=== PATIENT | male | born 1940 | race Caucasian/White ===

== ENCOUNTER 2020-12-14 07:10 | Day surgery (SDC) | payer OTHER ==
--- NOTE | 2020-12-10 11:22 | RAD REPORT ---
EXAM DESCRIPTION: RAD - Chest Pa And Lat (2 Views) - 12/10/2020 11:18 am CLINICAL HISTORY: pre-op procedure Chest pain. COMPARISON: CHEST SINGLE VIEW dated 07/16/2012; CHEST SINGLE VIEW dated 07/10/2012 FINDINGS: The lungs are clear. The heart is normal in size. No displaced fractures. Bilateral should er arthroplasties. IMPRESSION: No acute or concerning finding suspected.
[2020-12-10 12:24] LABS: Potassium 4.6 mmol/L (3.5-5.1)
[2020-12-10 12:27] LABS: Basophils % 0.7 % (0-1.3); Lymphocytes % 21.3 % (15.3-44.8); MPV 7.6 fL (7.6-11.3); RBC Red Blood Cell Count 4.25 M/uL (4.33-5.43)
[2020-12-10 12:30] LABS: Protime INR 1.03
[~2020-12-14 07:10] MED LIST: ATROPINE SULF 1 MG/10 ML SYR IV ONE; FENTANYL CITR 100 MCG/2 ML ONE; HEPA 1000U/500MLS 1,000 UNIT/500 ML BAG IV ONE; LIDOCAINE 1% 20 ML MDV ONE; MIDAZOLAM HCL 2 MG/2 ML INJ ONE; NA CHLORIDE 0.9% 500 ML ONE
[2020-12-14 08:14] VITALS: TEMP 97.2
[2020-12-14 08:42] VITALS: O2SAT 100
[2020-12-14 09:46] VITALS: BP 126/69
--- NOTE | 2020-12-14 15:53 | OP ---
Surgeon: Adonis Andrews MD Skilled Helper: Mr. Doni Johnson. Procedure: Admitted today 12/14/2020 to the drop crew laborer as an outpatient for bilateral selective caroti d angiogram. Indication: Abnormal carotid Doppler and CVD. Procedure In Detail: Mr. Coffey is 80, brought into the drop crew laborer today as an outpatient, prepped and draped in the routine sterile fashion. Given Versed for sedation and fentanyl. A 6-[place] sheath i ntroduced in the right common femoral artery successfully using Seldinger technique and 10 mL of Xylo evelia. Edgard catheter JR4 was used to select the left common carotid artery first and then the rig ht common carotid artery separately. We found an 80% stenosis in the right internal carotid artery. The left internal carotid had a 30% stenosis. Both of the common carotid and external carotid were normal. No complications. Blood loss was 5 mL. Anesthesia: Total conscious sedation 45 minutes. Postoperative Diagnosis: Severe right internal carotid artery stenosis. Plan: For a right carotid endarterectomy. Angiography in the common femoral artery area was normal. Angio-Seal was used to close the case. The patient will remain in the hospital for 2 hours. He wi ll go home after that. He will have a CD of his carotid angiogram with him. I will make arrangements for him to have an endarterectomy on the right side in the near future in [place]. RACHEL/PIA Voice ID: [id number] Report ID: [id number]
== END 2020-12-14 10:00 | disposition home or self-care (01) ==
LOC: CCL 07:10
DX: I65.23 Occlusion and stenosis of bilateral carotid arteries (principal); I25.10 Atherosclerotic heart disease of native coronary artery without angina pectoris; I10 Essential (primary) hypertension; E78.2 Mixed hyperlipidemia; Z95.5 Presence of coronary angioplasty implant and graft; Z20.822 Contact with and (suspected) exposure to COVID-19; Z82.49 Family history of ischemic heart disease and other diseases of the circulatory system
CPT/HCPCS: 85025; 80048; 36415; 85610; 85730; 71046; 36222; U0003; C1893; C1760; J2250; J3010; J7040; J1644

== ENCOUNTER 2022-09-08 07:20 | Day surgery (SDC) | payer OTHER ==
[2022-09-08] MEDS ORDERED: Ringers Lactate 1,000 ML IV ONE (08:19)
[2022-09-08] MEDS ORDERED: CEFAZOLIN SODIUM 2 GM/VIAL ONE (08:20)
[2022-09-08 08:58] LABS: Potassium 3.9 mmol/L (3.5-5.1)
[2022-09-08] MEDS ORDERED: propofoL 200 MG/20 ML VIAL IV ONE (09:33)
[2022-09-08] MEDS ORDERED: BUPIVACAINE 0.5% PF 10 ML VIAL ONE (09:47)
[2022-09-08] MEDS ORDERED: LIDOCAINE 2% MPF 5 ML VIAL ONE (10:08)
[2022-09-08] MEDS ORDERED: ONDANSETRON 4 MG/2 ML VIAL ONE (10:09)
--- NOTE | 2022-09-08 10:38 | P.OP ---
Preoperative diagnosis: RIGHT lower Extremity Infected Hematoma Postoperative diagnosis: RIGHT lower Extremity Infected Hematoma Primary procedure: Excisional Debridement of RIGHT lower Extremity Infected Hematoma Anesthesia: MAC + local Estimated blood loss: <5cc Specimen: Cultures and Debridment tissues Findings: necrotic tissue ~ 5cm x 3cm wound to fascia over muscle Complications: None Transferred to: Recovery Room Condition: Good
[2022-09-08 10:57] VITALS: O2SAT 100
[2022-09-08 12:56] VITALS: BP 176/79; TEMP 98.2
--- NOTE | 2022-09-08 20:33 | OP ---
Date of Procedure: 09/08/2022 Surgeon: Akhil Bernal MD, Preoperative Diagnosis: Right lower extremity infected hematoma. Postoperative Diagnosis: Right lower extremity infected hematoma. Procedure Performed: Excisional debridement of right lower extremity infected hematoma. Anesthesia: MAC plus local with 0.25% Marcaine. Estimated Blood Loss: Less than 5 cc. Specimen: Culture sent for aerobic and anaerobic speciation as well as debridement tissue. Findings: Necrotic tissue extending from approximately 5 cm x 3 cm down to the fascia overlying the muscle. Complications: None. The patient was transferred to recovery room in good condition. Procedure In Detail: After informed consent was obtained, the patient was brought to the operating r oom and prepped and draped in the usual sterile fashion. After adequate anesthesia was achieved, I a nesthetized the area circumferentially around an area of large fluctuance down through subcutaneous t issues using 0.25% Marcaine. I then made an elliptical incision down through an area of obvious disc oloration and fluctuance to expose an obvious hematoma with necrotic tissue. I cultured this area fo r both aerobic and anaerobic speciation. I took the ellipse of skin approximately 5 cm x 3 cm and re moved all necrotic tissue using a combination of sharp dissection as well as curette. After the cure tte had removed the majority of the tissue, I irrigated the area copiously and achieved hemostasis wi th electrocautery and inspected the area of hemostasis. No additional hemostatic measures required. I then packed the wound with 2 inch Kerlix soaked damp to dry with Vashe solution and a sterile dres sing placed over top as well as an Ravi bandage. The patient tolerated the procedure without evidence of any complication and transferred to PACU in good condition. All counts were correct at the end o f the case. TK/MODL Voice ID: [id number] Report ID: [id number]
--- NOTE | 2022-09-11 12:47 | EKG ---
Test Date: 2022-09-08 Test Time: 08:03:47 Dynamic Balancer: MEASUREMENT RESULTS: Intervals: Rate: 70 HI: 176 QRSD: 86 QT: 432 QTc: 466 [place]: P: 16 HI: 176 QRS: -16 T: 35 INTERPRETIVE STATEMENTS: Sinus rhythm with occasional premature ventricular complexes Minimal voltage criteria for LVH, may be normal variant Anteroseptal infarct, age undetermined Abnormal ECG Compared to ECG 07/16/2012 08:19:57 Ventricular premature complex(es) now present Left ventricular hypertrophy now present Myocardial infarct finding now present Sinus arrhythmia no longer present Electronically Signed On 09-11-22 12:38:48 ASSISTANT BRANCH MANAGER by Willian Ayon
== END 2022-09-08 12:00 | disposition home or self-care (01) ==
LOC: OR 07:20
PROVIDERS: ATTEND Surgery
PROC: 0JBN0ZZ Excision of Right Lower Leg Subcutaneous Tissue and Fascia, Open Approach (ICD-10-PCS; principal; 2022-09-08 10:20)
DX: S80.11XA Contusion of right lower leg, initial encounter (principal); L08.9 Local infection of the skin and subcutaneous tissue, unspecified; X58.XXXA Exposure to other specified factors, initial encounter; I96 Gangrene, not elsewhere classified
CPT/HCPCS: 93005; 87070; 80048; 36415; 87205 ×2; 88304; 87075; 11042; J2704; J2001; J7120; J2405

== ENCOUNTER 2025-02-25 06:35 | Day surgery (SDC) | payer OTHER ==
[2025-02-24 10:11] LABS: Absolute Lymphocytes (CBC) 0.4 K/uL (0.7-4.9); Hematocrit 30.3 % (39.6-49.0); Hemoglobin 10.4 g/dL (13.6-17.9); MCH 31.7 pg (27.0-35.0); MCHC 34.3 g/dL (32.0-36.0); MCV 92.5 fL (80-100); MPV 7.3 fL (7.6-11.3); Nucleated RBC Absolute Count 0.0 (0-0); Nucleated Red Blood Cells % 0.0 % (0-0); RBC Red Blood Cell Count 3.27 M/uL (4.33-5.43); White Blood Count 5.10 thou/uL (4.3-10.9)
[2025-02-24 10:22] LABS: PT Prothrombin Time 13.3 SECONDS (10-13.0); PTT, Activated Partial Thromb 28.9 SECONDS (27.2-37.4); Protime INR 1.18
[2025-02-24 10:27] LABS: Anion Gap 6.9 mEq/L (5.0-15.0); BUN Blood Urea Nitrogen 35.0 mg/dL (7-18); Glucose Level 107.0 mg/dL (74-106); Potassium 3.9 mEq/L (3.5-5.1)
[2025-02-25] MEDS ORDERED: NA CHLORIDE 0.9% 0 ML ONE (06:45)
[2025-02-25] MEDS ORDERED: NITROGLYCERIN/D5W 0 MG/0 ML BTL IV ONE (06:49)
[2025-02-25] MEDS ORDERED: HEPA IV ONE (06:49)
[2025-02-25] MEDS ORDERED: ASPIRIN 325 MG TAB ONE (06:50)
[2025-02-25] MEDS ORDERED: HEPARIN 10,000 UNIT/10 ML VIAL IV ONE (06:50)
[2025-02-25] MEDS ORDERED: CLOPIDOGREL 75 MG TABLET ONE (06:50)
[2025-02-25] MEDS ORDERED: ATROPINE SULF 1 MG/10 ML SYR IV ONE (06:50)
[2025-02-25] MEDS ORDERED: VERAPAMIL HCL 10 MG/4 ML VIAL IV ONE (06:50)
[2025-02-25] MEDS ORDERED: HEPARIN 5000 UNIT/ML 1 ML VIAL ONE (06:50)
[2025-02-25] MEDS ORDERED: LIDOCAINE 1% 20 ML MDV ONE (06:50)
[2025-02-25] MEDS ORDERED: TICAGRELOR 90 MG TABLET PO ONE (06:50)
[2025-02-25 07:06] VITALS: BP 115/66; O2SAT 95
== END 2025-02-25 07:45 | disposition home or self-care (01) ==
LOC: CCL 06:35
PROVIDERS: ATTEND Internal Medicine
DX: R94.39 Abnormal result of other cardiovascular function study (principal); I25.10 Atherosclerotic heart disease of native coronary artery without angina pectoris; Z53.8 Procedure and treatment not carried out for other reasons
CPT/HCPCS: 93005; 85025; 80048; 36415; 85610; 85730; J1644; J0461; J2003; J7040

== ENCOUNTER 2025-02-26 10:23 | Emergency (ER) | payer OTHER ==
[2025-02-26 11:05] LABS: Absolute Lymphocytes (CBC) 0.6 K/uL (0.7-4.9); Hematocrit 29.2 % (39.6-49.0); Hemoglobin 10.0 g/dL (13.6-17.9); MCH 31.7 pg (27.0-35.0); MCHC 34.2 g/dL (32.0-36.0); MCV 92.6 fL (80-100); MPV 7.3 fL (7.6-11.3); Nucleated RBC Absolute Count 0.0 (0-0); Nucleated Red Blood Cells % 0.0 % (0-0); RBC Red Blood Cell Count 3.16 M/uL (4.33-5.43); White Blood Count 4.90 thou/uL (4.3-10.9)
[2025-02-26 11:25] LABS: PT Prothrombin Time 13.4 SECONDS (10-13.0); Protime INR 1.19
[2025-02-26 11:26] LABS: ALT/SGPT 18.0 U/L (16-61); AST/SGOT 25.0 U/L (15-37); Albumin 3.0 g/dL (3.4-5.0); Albumin/Globulin Ratio 0.9 (1.1-1.8); Alkaline Phosphatase 72.0 U/L (45-117); Anion Gap 9.2 mEq/L (5.0-15.0); BUN Blood Urea Nitrogen 28.0 mg/dL (7-18); Bilirubin Indirect, Calculated 0.3 mg/dL (0.2-0.8); Globulin 3.3 g/dL (2.3-3.5); Glucose Level 130.0 mg/dL (74-106); Magnesium 1.5 mg/dL (1.6-2.4); NT PRO-BNP 347.0 pg/mL (<450); Potassium 3.2 mEq/L (3.5-5.1); Troponin High Sensitivity 11.1 pg/mL (<58.9)
--- NOTE | 2025-02-26 11:26 | RAD REPORT ---
EXAMINATION: ONE VIEW CHEST XR CLINICAL INDICATION: hypotension TECHNIQUE: Frontal chest projection is submitted. Examination is limited by patient positioning and t echnique. COMPARISON: 01-22-25 FINDINGS: The lungs are well inflated and clear. The heart is normal in size. No displaced fractures identified . Bilateral shoulder arthroplasty. IMPRESSION: No acute intrathoracic abnormalities.
[2025-02-26] MEDS ORDERED: NA CHLORIDE 0.9% 1,000 ML ONE (11:34)
[2025-02-26] MEDS ORDERED: NA CHLORIDE 0.9% 500 ML ONE (12:46)
[2025-02-26] MEDS ORDERED: POTASSIUM 25 MEQ EFFERV TAB ONE (12:51)
--- NOTE | 2025-02-26 13:57 | EDPHYS ---
Physician Documentation [facility] Name: Terell Coffey Age: 84 yrs Sex: Male : 1940 Arrival Date: 02/26/2025 Time: 10:23 Bed 4 Private MD: ED Physician Gabriela Saenz HPI: 02/26 11:06 This 84 yrs old Male presents to ER via Wheelchair with complaints of low blood sp3 pressure. 11:06 84-year-old male with history of hypertension, prostate cancer sent from Dr. Christensen sp3 office for hypotension and generalized weakness. Patient saw PCP who took patient off some blood pressure medications. He is currently receiving oral tablet chemotherapy for his prostate cancer. Patient's symptoms of low blood pressure been going on for the last 3 weeks episodically with intermittent normal blood pressures. Patient denies any symptoms other than the generalized weakness which only started today. He denies any current or past headache, neck pain, chest pain, shortness of breath, abdominal pain, vomit, diarrhea, extremity pain, syncope, near syncope, bleeding, melena, known sick contacts, travel history, fever, upper respiratory infection, or any other signs or symptoms on ROS at this time.. Historical: - Allergies: 10:27 No Known Allergies; aa5 - PMHx: 10:27 Hypertensive disorder; Prostate Cancer; aa5 - Immunization history:: Adult Immunizations unknown. - Infectious Disease History:: Denies. - Social history:: Smoking status: Patient denies any tobacco usage or history of. ROS: 11:11 Eyes: Negative for injury, pain, redness, and discharge, ENT: Negative for injury, sp3 pain, and discharge, Neck: Negative for injury, pain, and swelling, Cardiovascular: Negative for chest pain, palpitations, and edema, Respiratory: Negative for shortness of breath, cough, wheezing, and pleuritic chest pain, Abdomen/GI: Negative for abdominal pain, nausea, vomiting, diarrhea, and constipation, Back: Negative for injury and pain, MS/Extremity: Negative for injury and deformity, Skin: Negative for injury, rash, and discoloration, Psych: Negative for depression, anxiety, suicide ideation, homicidal ideation, and hallucinations, Allergy/Immunology: Negative for hives, rash, and allergies, Endocrine: Negative for neck swelling, polydipsia, polyuria, polyphagia, and marked weight changes, Hematologic/Lymphatic: Negative for swollen nodes, abnormal bleeding, and unusual bruising, 11:11 All other systems are negative, Exam: 11:13 Constitutional: This is a well developed, well nourished patient who is awake, alert, sp3 and in no acute distress. Head/Face: Normocephalic, atraumatic. Eyes: Pupils equal round and reactive to light, extra-ocular motions intact. Lids and lashes normal. Conjunctiva and sclera are non-icteric and not injected. Cornea within normal limits. Periorbital areas with no swelling, redness, or edema. Neck: Trachea midline, no thyromegaly or masses palpated, and no cervical lymphadenopathy. Supple, full range of motion without nuchal rigidity, or vertebral point tenderness. No Meningismus. Chest/axilla: Normal chest wall appearance and motion. Nontender with no deformity. No lesions are appreciated. Cardiovascular: Regular rate and rhythm with a normal S1 and S2. No gallops, murmurs, or rubs. Normal PMI, no JVD. No pulse deficits. Respiratory: Lungs have equal breath sounds bilaterally, clear to auscultation and percussion. No rales, rhonchi or wheezes noted. No increased work of breathing, no retractions or nasal flaring. Abdomen/GI: Soft, non-tender, with normal bowel sounds. No distension or tympany. No guarding or rebound. No evidence of tenderness throughout. Back: No spinal tenderness. No costovertebral tenderness. Full range of motion. Skin: Warm, dry with normal turgor. Normal color with no rashes, no lesions, and no evidence of cellulitis. MS/ Extremity: Pulses equal, no cyanosis. Neurovascular intact. Full, normal range of motion. Neuro: Awake and alert, GCS 15, oriented to person, place, time, and situation. Cranial nerves II-XII grossly intact. Motor strength 5/5 in all extremities. Sensory grossly intact. Cerebellar exam normal. Normal gait. Psych: Awake, alert, with orientation to person, place and time. Behavior, mood, and affect are within normal limits. 11:13 Cardiovascular: Blood pressure noted 75/47. Pulse normal., 11:15 ECG was reviewed by the Attending Physician. EKG demonstrates normal sinus rhythm at 67 sp3 bpm with normal intervals, normal QRS, normal axis and nonspecific diffuse ST/T changes without evidence of acute ischemia. Vital Signs: 10:27 BP 99 / 54; Pulse 70; Resp 18 S; Temp 97.8(TE); Pulse Ox 99% on R/A; Weight 65.77 kg aa5 (R); Height 5 ft. 6 in. (R); 10:56 BP 91 / 51 Supine; Pulse 66 LA; ar8 10:58 BP 90 / 51 LA Sitting; Pulse 70; ar8 11:00 BP 75 / 47 LA Standing; Pulse 72; ar8 11:37 BP 87 / 56; Pulse 59; Resp 18; Pulse Ox 100% on R/A; ph 12:01 BP 100 / 51; Pulse 61; Resp 18; Pulse Ox 98% on R/A; ph 14:01 BP 111 / 61 LA Supine; Pulse 66; Resp 16; Pulse Ox 97% on R/A; ar8 14:03 BP 126 / 91 LA Sitting; Pulse 71; Resp 17; ar8 14:05 BP 119 / 65 LA Standing; Pulse 74; ar8 10:27 Body Mass Index 23.40 (65.77 kg, 167.64 cm) aa5 MDM: 10:35 Medical Screening Exam initiated sp3 11:13 Data reviewed: vital signs, nurses notes, lab test result(s), EKG, radiologic studies. sp3 ED course: 84-year-old male with PMH above including prostate cancer now presents with hypotension with only symptom generalized weakness which only started today. Hypotension has been off and on for the last 3 weeks. Differential diagnosis includes dehydration, electrolyte abnormality, dysregulation of autonomic system, and to a lesser degree infection or other process. Workup will include general labs including lactate, chest x-ray, EKG and general supportive care. UA also ordered. Disposition probable admission with any indicated medications as needed.. 12:08 ED course: Patient mildly dehydrated with creatinine 1.6. Lactate of 2.0. Blood sp3 pressure already improved with 500 mL normal saline. A total of 1500 mL will be given coupled with potassium replenishment. Will reassess vital signs and blood pressure including orthostatics once complete to evaluate discharge versus 23-hour observation. Patient is feeling better and states that he would rather go home. He has good follow-up in the oncology office.. 13:56 ED course: Patient feeling much better. We will safely discharge him home at this time. sp3 I have offered admission however patient would like to go home.. 02/26 10:38 Order name: Basic Metabolic Panel; Complete Time: 11:41 sp3 02/26 10:38 Order name: CBC with Diff; Complete Time: 11:41 sp3 02/26 10:38 Order name: LFT's; Complete Time: 11:41 sp3 02/26 10:38 Order name: Magnesium; Complete Time: 11: sp3 02/26 10:38 Order name: NT PRO-BNP; Complete Time: 11: sp3 02/26 10:38 Order name: PT-INR; Complete Time: 11: sp3 02/26 10:38 Order name: Troponin HS; Complete Time: : sp3 02/26 10:38 Order name: Lactate w/ 2H reflex if indic.; Complete Time: 11:41 sp3 02/26 10:38 Order name: XRAY Chest (1 view); Complete Time: 11: 3 02/26 10:38 Order name: Cardiac monitoring; Complete Time: 10:40 sp3 02/26 10:38 Order name: EKG - Nurse/Tech; Complete Time: 11: sp3 02/26 10:38 Order name: IV Saline Lock; Complete Time: 10:40 sp3 02/26 10:38 Order name: Labs collected and sent; Complete Time: 10:40 sp3 02/26 10:38 Order name: O2 Per Protocol; Complete Time: 10:40 sp3 02/26 10:38 Order name: O2 Sat Monitoring; Complete Time: 10:40 sp3 02/26 10:38 Order name: Orthostatics; Complete Time: 11: sp3 02/26 12:10 Order name: Orthostatics: Please repeat after 1500 mL is infused.; Complete Time: 14:18 sp3 Administered Medications: 11:37 Drug: NS 0.9% IV 1000 ml IV at 1 bolus Per protocol; to be given as a bolus over 60 ph minutes Route: IV; Rate: 1 bolus; Site: right antecubital; 13:05 Follow up: IV Status: Completed infusion; IV Intake: 1000ml ar8 13:06 Follow up: Response: No adverse reaction ar8 12:55 Not Given (order changedd): potassium chlorideliquid 40 meq PO once ar8 13:05 Drug: NS 0.9% IV 500 ml IV at bolus once; to be given as a bolus over 30 minutes Route: ar8 IV; Rate: bolus; Site: right antecubital; 14:00 Follow up: Response: No adverse reaction; Marked relief of symptoms; IV Status: ar8 Completed infusion; IV Intake: 500ml 13:05 Drug: Potassium PO Effervescent Tablet 50 mEq PO once; dissolve in 4 ounces of water or ar8 juice Route: PO; 14:00 Follow up: Response: No adverse reaction ar8 Disposition Summary: 02/26/25 13:57 Discharge Ordered Notes: Location: Home sp3 Condition: Stable sp3 Diagnosis - Dehydration, hypokalemia sp3 Followup: sp3 - With: Private Physician - When: Upon discharge from the Emergency Department - Reason: Continuance of care Discharge Instructions: - Discharge Summary Sheet sp3 - Dehydration, Adult sp3 - Hypokalemia sp3 Forms: - Medication Reconciliation Form sp3 - Antibiotic Education sp3 - Prescription Opioid Use sp3 - Patient Portal Instructions sp3 - Leadership Thank You Letter sp3 Signatures: Dispatcher [employer] EDMS Carly Quinn RN RN aa5 Milla Swann RN RN ph Patel, Setul, MD MD sp3 Oren Miner RN RN ar8 Corrections: (The following items were deleted from the chart) 10:39 10:39 BASIC METABOLIC PANEL+C.LAB.BRZ ordered. EDMS EDMS 10:39 10:39 CBC+H.LAB.BRZ ordered. EDMS EDMS 10:39 10:39 HEPATIC FUNCTION+C.LAB.BRZ ordered. EDMS EDMS 10:39 10:39 MAGNESIUM+C.LAB.BRZ ordered. EDMS EDMS 10:39 10:39 PROBNP+C.LAB.BRZ ordered. EDMS EDMS 10:39 10:39 PROTIME (+INR)+COAG.LAB.BRZ ordered. EDMS EDMS 10:39 10:39 Troponin High Sensitivity+C.LAB.BRZ ordered. EDMS EDMS 10:39 10:39 LACTATE+C.LAB.BRZ ordered. EDMS EDMS 10:39 10:39 Chest Single View+RAD.RAD.BRZ ordered. EDMS EDMS 11:15 11:15 UA Rfx Vinny Cult if indicated+U.LAB.BRZ ordered. EDMS EDMS
--- NOTE | 2025-02-26 13:57 | ER ---
Nurse's Notes [facility] Name: Terell Coffey Age: 84 yrs Sex: Male : 1940 Arrival Date: 02/26/2025 Time: 10:23 Bed 4 Private MD: Diagnosis: Dehydration, hypokalemia Presentation: 02/26 10:27 Chief complaint: Pt's reports being sent here from Dr. Christensen office (cancer aa5 center) for low blood pressure, reports systolic BP was 60. Pt denies any complaints. Pt's reports low blood pressure x 3 weeks and reports was taken off amlodipine x 1 week ago per PCP. 10:27 Coronavirus screen: At this time, the client does not indicate any symptoms associated aa5 with coronavirus-19. Ebola Screen: Patient denies travel to an Ebola-affected area in the 21 days before illness onset. Initial Sepsis Screen: Does the patient meet any 2 criteria? No. Patient's initial sepsis screen is negative. Does the patient have a suspected source of infection? No. Patient's initial sepsis screen is negative. Risk Assessment: Do you want to hurt yourself or someone else? Patient reports no desire to harm self or others. Onset of symptoms was February 26, 2025. 10:27 Acuity: MEAGAN 2 aa5 10:27 Method Of Arrival: Wheelchair aa5 Historical: - Allergies: 10:27 No Known Allergies; aa5 - PMHx: 10:27 Hypertensive disorder; Prostate Cancer; aa5 - Immunization history:: Adult Immunizations unknown. - Infectious Disease History:: Denies. - Social history:: Smoking status: Patient denies any tobacco usage or history of. Screenin:01 [facility] ED Fall Risk Assessment (Adult) History of falling in the last 3 months, ar8 including since admission Yes- single mechanical fall (1 pt) Confusion or Disorientation No (0 pts) Intoxicated or Sedated No (0 pts) Impaired Gait No (0 pts) Mobility Assist Device Used No (0 pt) Altered Elimination No (0 pt) Score/Fall Risk Level 0 - 2 = Low Risk Oriented to surroundings, Maintained a safe environment. Abuse screen: Denies threats or abuse. Nutritional screening: No deficits noted. Tuberculosis screening: No symptoms or risk factors identified. Assessment: 10:41 General: Appears in no apparent distress. Behavior is calm, cooperative. Pain: Denies ar8 pain. Neuro: Level of Consciousness is awake, alert, obeys commands, Oriented to person, place, time, situation. Neuro: No deficits noted. Denies weakness dizziness. Cardiovascular: No deficits noted. Denies chest pain, Rhythm is sinus rhythm. Respiratory: No deficits noted. Airway is patent Respiratory effort is even, unlabored, Respiratory pattern is regular, symmetrical. GI: No deficits noted. Derm: Bruising that is dark purple, on right eye. 11:38 Reassessment: Patient appears in no apparent distress at this time. Patient and/or ph family updated on plan of care and expected duration. Pain level reassessed. Patient is alert, oriented x 3, equal unlabored respirations, skin warm/dry/pink. Vital Signs: 10:27 BP 99 / 54; Pulse 70; Resp 18 S; Temp 97.8(TE); Pulse Ox 99% on R/A; Weight 65.77 kg aa5 (R); Height 5 ft. 6 in. (R); 10:56 BP 91 / 51 Supine; Pulse 66 LA; ar8 10:58 BP 90 / 51 LA Sitting; Pulse 70; ar8 11:00 BP 75 / 47 LA Standing; Pulse 72; ar8 11:37 BP 87 / 56; Pulse 59; Resp 18; Pulse Ox 100% on R/A; ph 12:01 BP 100 / 51; Pulse 61; Resp 18; Pulse Ox 98% on R/A; ph 14:01 BP 111 / 61 LA Supine; Pulse 66; Resp 16; Pulse Ox 97% on R/A; ar8 14:03 BP 126 / 91 LA Sitting; Pulse 71; Resp 17; ar8 14:05 BP 119 / 65 LA Standing; Pulse 74; ar8 10:27 Body Mass Index 23.40 (65.77 kg, 167.64 cm) aa5 ED Course: 10:24 Patient arrived in ED. im 10:27 Arm band placed on. aa5 10:35 Gabriela Saenz MD is Attending Physician. sp3 10:35 Bed in low position. Call light in reach. Side rails up X2. ar8 10:35 Provided Education on: plan of care. ar8 10:35 EKG done, by ED staff, reviewed by Gabriela Saenz MD. ar8 10:39 Kristofer, Oren, RN is Primary Nurse. ar8 10:40 Triage completed. aa5 10:41 No provider procedures requiring assistance completed. Inserted saline lock: 22 gauge ar8 in right antecubital area, using aseptic technique. Blood collected. Flushed with 10 mL NS. 11:02 radiology at bedside for CXR. ar8 11:11 XRAY Chest (1 view) In Process Unspecified. EDMS 14:08 IV discontinued, intact, bleeding controlled, No redness/swelling at site. Pressure ar8 dressing applied. Administered Medications: 11:37 Drug: NS 0.9% IV 1000 ml IV at 1 bolus Per protocol; to be given as a bolus over 60 ph minutes Route: IV; Rate: 1 bolus; Site: right antecubital; 13:05 Follow up: IV Status: Completed infusion; IV Intake: 1000ml ar8 13:06 Follow up: Response: No adverse reaction ar8 12:55 Not Given (order changedd): potassium chlorideliquid 40 meq PO once ar8 13:05 Drug: NS 0.9% IV 500 ml IV at bolus once; to be given as a bolus over 30 minutes Route: ar8 IV; Rate: bolus; Site: right antecubital; 14:00 Follow up: Response: No adverse reaction; Marked relief of symptoms; IV Status: ar8 Completed infusion; IV Intake: 500ml 13:05 Drug: Potassium PO Effervescent Tablet 50 mEq PO once; dissolve in 4 ounces of water or ar8 juice Route: PO; 14:00 Follow up: Response: No adverse reaction ar8 Medication: 14:09 VIS not applicable for this client. ar8 Intake: 13:05 IV: 1000ml; Total: 1000ml. ar8 14:00 IV: 500ml; Total: 1500ml. ar8 Outcome: 13:57 Discharge ordered by . sp3 14:09 Discharged to home via wheelchair, ar8 14:09 Condition: stable 14:09 Discharge instructions given to patient, significant other, Instructed on discharge instructions, follow up and referral plans. medication usage, Demonstrated understanding of instructions, follow-up care, medications, 14:18 Patient left the ED. ar8 Signatures: Dispatcher [employer] EDIN Carly Quinn RN RN aa5 Milla Swann RN RN Gabriela Saenz MD MD sp3 Caryl Ayala Andrea RN RN ar8 Corrections: (The following items were deleted from the chart) 10:42 10:27 Chief complaint: Pt's reports being sent here from Dr. Christensen office (cancer aa5 center) for low blood pressure, reports systolic BP was 60. Pt denies any complaints. aa5 : 10:41 Neuro: No deficits noted. Denies weakness dizziness, ar8 ar8 11: 10:41 Derm: Bruising that is dark purple, on right eye and right zoroastrian ar8 ar8
[2025-02-26 14:23] VITALS: TEMP 97.8
[2025-02-26 14:32] VITALS: O2SAT 97
[2025-02-26 14:35] VITALS: BP 119/65
== END 2025-02-26 14:18 | disposition home or self-care (01) ==
LOC: ER 10:23
DX: E86.0 Dehydration (principal); E87.6 Hypokalemia; I10 Essential (primary) hypertension; Z85.46 Personal history of malignant neoplasm of prostate
CPT/HCPCS: 96361; 93005; 85025; 80048; 36415; 83735; 85610; 80076; 83605; 84484; 83880; 71045; 96360; 99284; J7040; J7030

== ENCOUNTER 2025-03-03 06:30 | Day surgery (SDC) | payer OTHER ==
[2025-03-03] MEDS ORDERED: HEPARIN 5000 UNIT/ML 1 ML VIAL ONE (06:51)
[2025-03-03] MEDS ORDERED: NITROGLYCERIN/D5W 50 MG/250 ML BTL IV ONE (06:51)
[2025-03-03] MEDS ORDERED: LIDOCAINE 1% 20 ML MDV ONE (06:51)
[2025-03-03] MEDS ORDERED: ATROPINE SULF 1 MG/10 ML SYR IV ONE (06:51)
[2025-03-03] MEDS ORDERED: VERAPAMIL HCL 10 MG/4 ML VIAL IV ONE (06:51)
[2025-03-03] MEDS ORDERED: HEPARIN 10,000 UNIT/10 ML VIAL IV ONE (06:51)
[2025-03-03] MEDS ORDERED: NA CHLORIDE 0.9% 500 ML ONE (06:55)
[2025-03-03] MEDS ORDERED: FENTANYL CITR 100 MCG/2 ML ONE (07:20)
[2025-03-03] MEDS ORDERED: MIDAZOLAM HCL 2 MG/2 ML INJ ONE (07:21)
--- NOTE | 2025-03-03 09:39 | OP ---
Date of Procedure: 03/03/2025 Surgeon: GRACIA ROMEO Procedure Performed: Selective coronary angiogram. Indication: Chest pain with abnormal stress test. Access: Right common femoral artery 6-Japanese, closed with 6-Japanese Mynx closure device. Complications: None. Bleeding: Less than 50 mL. Total Sedation Time: 45 minutes. Used fentanyl and Versed. Description Of Procedure: After risks, benefits, and alternatives were explained, the patient agreed to procedure and signed informed consent. The patient was brought into cardiac catheterization [facility], prepped and draped in usual sterile fashion. Then, I accessed the right common femoral arter y using micropuncture kit, ultrasound guidance, and fluoroscopy, placed a 6-Japanese Avoca sheath an d took a 6-Japanese JL4 catheter into the aortic root, engaged left main, took standard views and then exchanged for a 6-Japanese JR4 catheter, engaged the RCA, took standard views, and removed the catheter and the sheath, and 6-Japanese Mynx closure device could be used for closure with good hemostasis. Findings: 1. Left main distal very hazy, heavily calcified 80% stenosed. 2. LAD; ostial 80% stenosis, mid 2 tandem lesions, about 80% stenosed. Rest of LAD is normal. Diago nal branches with luminal irregularities. 3. Left circumflex has ostial 80% stenosis. 4. RCA; it is large and dominant with mid 80%, mid to distal focal 90% stenosis. Conclusion: Severe multivessel coronary artery disease, normal left main. Recommendation: CABG evaluation versus high-risk PCI with Impella. SR/MODL Voice ID: [id number] Report ID: [id number]
[2025-03-03 10:20] VITALS: BP 113/71; O2SAT 95
== END 2025-03-03 10:24 | disposition home or self-care (01) ==
LOC: CCL 06:30
PROVIDERS: ATTEND Internal Medicine
DX: I25.10 Atherosclerotic heart disease of native coronary artery without angina pectoris (principal); I65.23 Occlusion and stenosis of bilateral carotid arteries; I10 Essential (primary) hypertension; E78.2 Mixed hyperlipidemia; K21.9 Gastro-esophageal reflux disease without esophagitis; Z79.02 Long term (current) use of antithrombotics/antiplatelets; Z79.899 Other long term (current) drug therapy; Z82.49 Family history of ischemic heart disease and other diseases of the circulatory system
CPT/HCPCS: 93454; 76937; C1893; Q9967; J1644; J2003; J2250; J3010; J7040; C1760; 36247; 93458; 99152; 99153; J0461